=== PATIENT | male | born 1955 | race African-American/Black ===

== ENCOUNTER 2017-06-25 09:11 | Emergency (ER) | payer MEDICAID, OTHER ==
[~2017-06-25] VITALS: Ht 185.4 cm; Wt 83.9 kg
[2017-06-25] MEDS ORDERED: DILTIAZEM 24HR180 M1 ORAL (09:26)
[2017-06-25] MEDS ORDERED: LOSARTAN POTASS50 MG ORAL (09:26)
[2017-06-25 09:35] VITALS: BP 152/129
--- NOTE | 2017-06-25 09:44 | Emergency Room Report ---
History of Present Illness General Chief Complaint: Chest Pain Source: Patient Present Illness HPI 62-year-old male with pmhx of HTN, occasional smoking history p/w chest pain for one hour. Chest pain started while at rest. His friend took his blood pressure and noted it to be high systolic 180. Chest pain is localized to substernal area, no radiation to back or other areas, sharp in nature, gradual in onset, pain has gradually improved since coming to the emergency room. no SOB. Denies palpitations, diaphoresis, n/v. Denies fever, chills, cough, abd pain. Denies trauma. Patient states that he had a cardiac workup, including stress test and angiogram , that was performed more than 6-7 years ago, which were normal States that he smokes occasionally, never one pack of cigarettes per day. Denies other drug use Allergies: Coded Allergies: NO KNOWN DRUG ALLERGIES (Unverified Allergy, Unknown, 02/23/14) Patient History Past Medical History: see triage record Past Surgical History: none Pertinent Family History: none Reviewed Nursing Documentation: PMH: Agreed, PSxH: Agreed Nursing Documentation-PMH Past Medical History: No History, Except For Hx Hypertension: Yes Review of Systems All Other Systems: negative except mentioned in HPI Physical Exam Vital Signs Date Time Temp Pulse Resp B/P (MAP) Pulse Ox O2 Delivery O2 Flow Rate FiO2 06/25/17 09:22 98.4 85 16 182/120 96 Room Air 98.4 Sp02 EP Interpretation: reviewed, normal General Appearance: normal inspection, well appearing, no apparent distress, alert, GCS 15, non-toxic Head: normocephalic, atraumatic Eyes: bilateral eye normal inspection, bilateral eye PERRL, bilateral eye EOMI ENT: normal ENT inspection, normal pharynx, normal voice, moist mucus membranes Neck: normal inspection, full range of motion, supple Respiratory: normal inspection, lungs clear, normal breath sounds, no respiratory distress, no retraction, no wheezing, speaking full sentences, chest symmetrical Cardiovascular #1: normal inspection, regular rate, rhythm, no edema, normal capillary refill Cardiovascular #2: 2+ radial (R), 2+ radial (L) Gastrointestinal: normal inspection, non tender, soft, non-distended, no guarding Genitourinary: no CVA tenderness Musculoskeletal: normal inspection, back normal, normal range of motion, non- tender Neurologic: normal inspection, alert, oriented x3, responsive, motor strength/ tone normal, sensory intact, normal gait, speech normal Psychiatric: normal inspection, judgement/insight normal, memory normal Skin: normal inspection, normal color, no rash, warm/dry, well hydrated, normal turgor Medical Decision Making Diagnostic Impression: Primary Impression: ACS (acute coronary syndrome) ER Course 62-year-old male with pmhx of hypertension p/w CP DDX: ACS vs. CHF vs. pneumonia vs. gastritis/GERD vs. pneumothorax PE on differential however at this time there are other more likely diagnoses. Plan: IV access, obtain labs including troponin, EKG, CXR ASA, pain control with nitro / morphine Anticipate admission ER course: Patient was treated with ASA. Patient has remained on a monitor, HD stable, chest pain improved. Disposition: Patient requires admission for chest pain due to new TWI on EKG and some persistent CP Due to patient's history and comorbidities, patient has increased risk of acute cardiac event. Patient requires admission for further workup, serial troponin, and possible stress test Pt will be xferred due to insurance purposes -- [facility] hospitalist Dr Cornejo who has accepted pt to xfer to [facility] Please note that this Emergency Department Report was dictated using [employer] project site monitor technology software, occasionally this can lead to erroneous entry secondary to interpretation by the dictation equipment. EKG Diagnostic Results EP Interpretation: Yes Rate: normal Rhythm: NSR ST Segments: T-wave inversion lateral leads that are new since previous EKG 2013 ASA given to patient: Yes Rhythm Strip EP Interpretation: Yes Rate: 70 Rhythm: NSR, no PVCs, no ectopy Chest X-ray CXR: Ordered: Yes 1 view Indication: Chest pain EP interpretation: Yes Interpretation: No consolidation, no effusion, no PTX, no acute cardiopulmonary disease Impression: No acute disease Electronically signed by Ancelmo Styles MD Laboratory Tests Test 06/25/17 09:30 06/25/17 10:36 White Blood Count 7.3 K/UL (4.8-10.8) Red Blood Count 4.53 M/UL (4.70-6.10) L Hemoglobin 15.2 G/DL (14.2-18.0) Hematocrit 42.8 % (42.0-52.0) Mean Corpuscular Volume 94 FL (80-99) Mean Corpuscular Hemoglobin 33.5 PG (27.0-31.0) H Mean Corpuscular Hemoglobin Concent 35.4 G/DL (32.0-36.0) Red Cell Distribution Width 10.6 % (11.6-14.8) L Platelet Count 280 K/UL (150-450) Mean Platelet Volume 6.0 FL (6.5-10.1) L Neutrophils (%) (Auto) 71.1 % (45.0-75.0) Lymphocytes (%) (Auto) 17.1 % (20.0-45.0) L Monocytes (%) (Auto) 6.3 % (1.0-10.0) Eosinophils (%) (Auto) 4.3 % (0.0-3.0) H Basophils (%) (Auto) 1.2 % (0.0-2.0) Sodium Level 140 MMOL/L (136-145) Potassium Level 3.8 MMOL/L (3.5-5.1) Chloride Level 106 MMOL/L (98-107) Carbon Dioxide Level 30 MMOL/L (21-32) Anion Gap 4 mmol/L (5-15) L Blood Urea Nitrogen 13 mg/dL (7-18) Creatinine 1.5 MG/DL (0.55-1.30) H Estimate Glomerular Filtration Rate 57.7 mL/min (>60) Glucose Level 135 MG/DL (74-106) H Calcium Level 9.0 MG/DL (8.5-10.1) Total Bilirubin 0.3 MG/DL (0.2-1.0) Aspartate Amino Transferase (AST) 24 U/L (15-37) Alanine Aminotransferase (ALT) 50 U/L (12-78) Alkaline Phosphatase 48 U/L (46-116) Troponin I 0.005 ng/mL (0.000-0.056) Pro-B-Type Natriuretic Peptide 117 pg/mL (0-125) Total Protein 7.4 G/DL (6.4-8.2) Albumin 3.4 G/DL (3.4-5.0) Globulin 4.0 g/dL Albumin/Globulin Ratio 0.9 (1.0-2.7) L Urine Color Pending Urine Appearance Pending Urine pH Pending Urine Specific [place] Pending Urine Protein Pending Urine Glucose (UA) Pending Urine Ketones Pending Urine Occult Blood Pending Urine Nitrite Pending Urine Bilirubin Pending Urine Urobilinogen Pending Urine Leukocyte Esterase Pending Urine Opiates Screen Pending Urine Barbiturates Screen Pending Phencyclidine (PCP) Screen Pending Urine Amphetamines Screen Pending Urine Benzodiazepines Screen Pending Urine Cocaine Screen Pending Urine Marijuana (THC) Screen Pending Last Vital Signs Date Time Temp Pulse Resp B/P (MAP) Pulse Ox O2 Delivery O2 Flow Rate FiO2 06/25/17 09:35 97.4 82 18 152/129 99 Room Air 97.4 Disposition: XFER SHT-TRM HOSP Condition: Serious Referrals: [facility],REFERRING (PCP) Ancelmo Styles M.D. Jun 25, 2017 09:44
[2017-06-25] MEDS: Nitroglycerin Subl 0.4mg tab SL PRN ×2 (09:49→09:58)
[2017-06-25 09:53] LABS: BASOPHILS % (AUTO) 1.2 % (0.0-2.0); EOSINOPHILS % (AUTO) 4.3 % (0.0-3.0); HEMATOCRIT 42.8 % (42.0-52.0); HEMOGLOBIN 15.2 G/DL (14.2-18.0); LYMPHOCYTES % (AUTO) 17.1 % (20.0-45.0); MEAN CORPUSCULAR VOLUME 94 FL (80-99); MONOCYTES % (AUTO) 6.3 % (1.0-10.0); NEUTROPHILS % (AUTO) 71.1 % (45.0-75.0); PLATELET COUNT 280 K/UL (150-450); RED BLOOD COUNT 4.53 M/UL (4.70-6.10); RED CELL DISTRIBUTION WIDTH 10.6 % (11.6-14.8); WHITE BLOOD COUNT 7.3 K/UL (4.8-10.8)
[2017-06-25 09:59] LABS: ANION GAP 4 mmol/L (5-15); BLOOD UREA NITROGEN 13 mg/dL (7-18); CARBON DIOXIDE 30 MMOL/L (21-32); CHLORIDE 106 MMOL/L (98-107); CREATININE 1.5 MG/DL (0.55-1.30); POTASSIUM 3.8 MMOL/L (3.5-5.1); SODIUM 140 MMOL/L (136-145)
[2017-06-25 10:11] LABS: ALANINE AMINOTRANSFERASE 50 U/L (12-78); ALBUMIN 3.4 G/DL (3.4-5.0); ALBUMIN/GLOBULIN RATIO 0.9 (1.0-2.7); ALKALINE PHOSPHATASE 48 U/L (46-116); ASPARTATE AMINO TRANSFERASE 24 U/L (15-37); BILIRUBIN,TOTAL 0.3 MG/DL (0.2-1.0)
--- NOTE | 2017-06-25 10:18 | Diagnostic Imaging Report ---
Indication: Chest pain Comparison: 02/22/2014 A single view chest radiograph was obtained. Findings: Cardiomediastinal appearance is within normal limits for age. Aorta is ectatic. Pulmonary vascularity is appropriate. The diaphragmatic contour is smooth and costophrenic angles are sharp. No pleural effusions are identified. The bones are slightly osteopenic. Impression: No acute findings
[2017-06-25 10:44] LABS: APPEARANCE,URINE CLEAR; BILIRUBIN, URINE NEGATIVE (NEGATIVE); COLOR,URINE PALE YELLOW; GLUCOSE, URINE (UA) NEGATIVE (NEGATIVE); KETONES,URINE NEGATIVE (NEGATIVE); LEUKOCYTE ESTERASE ,URINE NEGATIVE (NEGATIVE); NITRITE,URINE NEGATIVE (NEGATIVE); PH,URINE 7 (4.5-8.0); PROTEIN,URINE NEGATIVE (NEGATIVE); UROBILINOGEN,URINE NORMAL MG/DL (0.0-1.0)
[2017-06-25 12:27] VITALS: BP 169/108
[2017-06-25 12:28] VITALS: BP 169/108
--- NOTE | 2017-06-28 16:20 | Cardiology Report ---
APPROVED REPORT EKG Measurement Heart [id number] Normal sinus rhythm with sinus arrhythmia Left axis deviation Abnormal ECG
== END 2017-06-25 12:29 | disposition short-term general hospital (02) ==
LOC: EMR 09:24
DX: I24.9 Acute ischemic heart disease, unspecified (principal); I10 Essential (primary) hypertension
CPT/HCPCS: 36415; 71045; 80053; 80307; 81003; 83880; 84484; 85025; 93005; 99284

== ENCOUNTER 2019-11-08 13:32 | Emergency (ER) | payer OTHER ==
[~2019-11-08] VITALS: Ht 182.9 cm; Wt 83.9 kg
[~2019-11-08 13:32] MED LIST: DILTIAZEM 24HR180 M1 ORAL; LOSARTAN POTASS50 MG ORAL
[2019-11-08] MEDS ORDERED: HYDROCHLOROTHIA25 MG ORAL (13:48)
[2019-11-08] MEDS ORDERED: METOPROLOL TART50 M1 ORAL (13:48)
[2019-11-08 13:53] VITALS: BP 148/93
--- NOTE | 2019-11-08 14:03 | Emergency Room Report ---
History of Present Illness General Chief Complaint: General Complaint Source: Patient Present Illness HPI History of present illness: 61-year-old -[place] male with past medical history of hypertension presents with left upper extremity paresthesia X 2 days. The patient's symptoms were abrupt onset, severity was moderate, duration since 2 days. Symptoms happened in the context of when he woke up 2 days ago he found his left upper extremity slightly weaker but the weakness gradually went away. The paresthesias remain.. The patient endorses associated symptoms of numbness/ tingling of the left arm, forearm, and hand, and denies any associated symptoms of headache, vision changes, slurred speech, facial droop, or difficulty walking Denies head trauma. States he has been compliant with his medications Past medical history: Hypertension, dyslipidemia Past surgical history: Ortho Smoking: Denies Alcohol use: Occasional Drug use: Occasional marijuana Review of systems: CONST: No fevers or chills, No night sweats PULMONARY: No productive cough, No shortness of breath CARDIAC: No chest pain, No palpitations GI: No vomiting, No diarrhea , No melena_or_BRBPR : No dysuria, No hematuria, No discharge NEURO: No new_focal_weakness_or_numbness, No confusion, No vision changes 14 point Review of Systems is otherwise negative except per HPI Physical Exam: GENERAL: Awake_alert_ nontoxic, no acute distress Spo2 96 % on room air, normal EYES: Extraocular muscles are intact. Conjunctivae clear. Lids without swelling ENT: External nose and ear normal_in_appearance. Oropharynx clear. Head_ atraumatic, Moist_oral_mucosa NECK: No JVD. No meningismus. No thyromegaly. Supple. Trachea midline RESP: Normal respiratory effort. Symmetric rise. No stridor. Clear_to_ auscultation_No_rales_No_wheezes CARDIAC: Regular rate and regular rhythm on_auscultation No_significant pedal edema. ABDOMEN: Soft. Nondistended. Nontender_No_rebound_or_guarding. MSK: Normal muscle tone, without rigidity. Extremities without asymmetric deformity or swelling. SKIN: Warm and dry. No visible cyanosis or pallor NEUROLOGIC: Alert, oriented x3. Motor_and_sensation_grossly_intact. No truncal ataxia. Gait_normal Sensation to left upper extremity. Bilateral upper and lower extremity strength plus 5 out of 5, symmetric bilaterally negative Romberg sign. Abnormal left upper extremity finger to nose. Normal RUE finger to nose. No pronator drift. Psych: Normal mood and affect, normal judgment and insight - COORDINATION OF CARE Case was discussed with: Patient Any labs and imaging that were ordered were interpreted as part of the medical decision making: Medical Decision Making/Plan: Differential diagnosis includes TIA, ischemic stroke, hemorrhagic stroke, salvador s paralysis, hypoglycemia, brain mass, metabolic encephalopathy, among others. The patients presentation appears most consistent with a diagnosis of TIA given transient neurologic symptoms that have completely resolved CT shows old R lacunar infarct. This is likely the cause for the patient's symptoms. No ICH. Chest x-ray shows no acute abnormalities. Left shoulder repair labs show KELLEN. Troponin is negative x1. The patient is not a tPa candidate because their NIH stroke scale is zero. They have a normal neurologic exam, all symptoms resolved and back to baseline The patient will be admitted to the hospital to a telemetry bed for further workup and treatment. Aspirin was given and care transitioned to the admitting physician. 1600: I spoke with Dr. Addison, and reviewed the patients presentation, workup, results, and treatment. They will admit the patient for further care and evaluation, and assume care of the patient at this time. The patient has been stabilized to the best of this emergency department's capabilities. Given the patient's medical needs, appropriate facilities for transfer were discussed and the decision has been made to transfer this patient to [facility] due to capitation. The receiving facility has the capacity and capabilities to provide care for the patient. I spoke with Dr Addison who accepted the patient in transfer. The patient has been informed and updated of their current clinical status. The patient has given verbal consent for the transfer. The risks and benefits were explained and the patient verbalizes their understanding. The patient will be transported by S Allergies: Coded Allergies: NO KNOWN DRUG ALLERGIES (Unverified Allergy, Unknown, 02/23/14) COVID-19 Screening Contact w/high risk pt: No Experienced COVID-19 symptoms?: No COVID-19 Testing performed CAR RENTAL MANAGER: No Nursing Documentation-PMH Past Medical History: No History, Except For Hx Hypertension: Yes Physical Exam Vital Signs Date Time Temp Pulse Resp B/P (MAP) Pulse Ox O2 Delivery O2 Flow Rate FiO2 11/08/19 13:43 98.4 63 14 155/99 (117) 96 Room Air Sp02 EP Interpretation: reviewed, normal Procedures Critical Care Time Critical Care Time Critical Care Statement Organ systems at risk include: Neurologic, cardiac, circulatory Critical care performed for 45 minutes. Time is exclusive of separately billable procedures. Time includes: direct patient care, continuous monitoring and multiple patient reassessment, coordination of patient care, review of patient's medical records , medical consultation, family consultation regarding treatment decisions and documentation of patient care. Medical Decision Making Diagnostic Impression: Primary Impression: TIA (transient ischemic attack) Additional Impressions: Paresthesia of left upper extremity Hypertension Hyperlipidemia Smoker Marijuana use Right-sided lacunar infarction KELLEN (acute kidney injury) Cocaine abuse Marijuana abuse EKG Diagnostic Results EKG Time: 14:15 Other Impression 12-lead EKG (interpreted by me) Time: 1415 Indication: [Rhythm analysis] Tracing visualized and Interpreted by me. Rhythm: Sinus bradycardia Rate: 55 bpm QTc: 401 Morphology: No_significant_ST_elevations_or_depressions, No STEMI Impression: Sinus bradycardia, Twi V4-V6; nL axis ASA given to the pt in ED: Yes Rhythm Strip Diag. Results Rhythm Strip Time: 14:07 EP Interpretation: yes Rate: 63 Rhythm: NSR, no PVC's, no ectopy Other Impression Normal Chest X-Ray Diagnostic Results Chest X-Ray Diagnostic Results : PRAISH Scribe Text Chest X-ray: Views: 1 view(s) Indication: TIA Findings: Normal heart size. Mediastinum normal. No infiltrate. Impression: No Acute disease The X-ray(s) were independently viewed and interpreted contemporaneously - Electronically signed by Mónica aguilar DO CT/MRI/US Diagnostic Results CT/MRI/US Diagnostic Results : Impression Procedure: CT Head no Contrast Indication: L Sided weakness Comparison: None. Findings: Old lacunar infarct is seen in the right frontal deep white matter. There is mild periventricular deep white matter low-attenuation, consistent with chronic microvascular ischemic change. The ventricles and extra-axial CSF spaces are normal for age. No acute intracranial hemorrhage or edema. No mass effect nor midline shift. The mastoids are clear. The visualized orbits and sinuses are unremarkable. The calvarium is intact. Impression: Age-related changes, as described Old right frontal lacunar infarct Negative for acute intracranial bleed or mass effect Reevaluation Time: 14:08 Last Vital Signs Date Time Temp Pulse Resp B/P (MAP) Pulse Ox O2 Delivery O2 Flow Rate FiO2 11/08/19 13:43 98.4 63 14 155/99 (117) 96 Room Air Status: improved Disposition: ADMITTED INPATIENT - [facility]. Accepting Dr Addison Admmary Decision Time: 14:08 Condition: Stable Mónica Reed D.O. Nov 08, 2019 14:02
--- NOTE | 2019-11-08 14:25 | Diagnostic Imaging Report ---
Indications: Left-sided weakness and numbness Technique: Spiral acquisitions obtained through the brain. Angled axial and coronal 5 x 5 mm slices were reconstructed. Total dose length product 1072 mGycm. CTDI vol(s) 53 mGy. Dose reduction achieved using automated exposure control Comparison: None. Findings: Old lacunar infarct is seen in the right frontal deep white matter. There is mild periventricular deep white matter low-attenuation, consistent with chronic microvascular ischemic change. The ventricles and extra-axial CSF spaces are normal for age. No acute intracranial hemorrhage or edema. No mass effect nor midline shift. The mastoids are clear. The visualized orbits and sinuses are unremarkable. The calvarium is intact. Impression: Age-related changes, as described Old right frontal lacunar infarct Negative for acute intracranial bleed or mass effect The CT scanner at [facility] is accredited by the [employer] and the scans are performed using protocols designed to limit radiation exposure to as low as reasonably achievable to attain images of sufficient resolution adequate for diagnostic evaluation.
[2019-11-08 14:37] LABS: EOSINOPHILS % (AUTO) 0.9 % (0.0-3.0); HEMATOCRIT 47.6 % (42.0-52.0); HEMOGLOBIN 16.3 G/DL (14.2-18.0); LYMPHOCYTES % (AUTO) 15.5 % (20.0-45.0); MEAN CORPUSCULAR VOLUME 94 FL (80-99); MONOCYTES % (AUTO) 7.6 % (1.0-10.0); PLATELET COUNT 332 K/UL (150-450); RED BLOOD COUNT 5.06 M/UL (4.70-6.10); RED CELL DISTRIBUTION WIDTH 10.9 % (11.6-14.8); WHITE BLOOD COUNT 14.9 K/UL (4.8-10.8)
[2019-11-08 14:40] LABS: ANION GAP 5 mmol/L (5-15); BLOOD UREA NITROGEN 20 mg/dL (7-18); CARBON DIOXIDE 34 MMOL/L (21-32); CHLORIDE 99 MMOL/L (98-107); CREATININE 1.5 MG/DL (0.55-1.30); POTASSIUM 3.9 MMOL/L (3.5-5.1); SODIUM 138 MMOL/L (136-145)
[2019-11-08 14:41] LABS: CALCIUM 10.1 MG/DL (8.5-10.1)
[2019-11-08 14:49] LABS: ALANINE AMINOTRANSFERASE 70 U/L (12-78); ALBUMIN 4.2 G/DL (3.4-5.0); ALKALINE PHOSPHATASE 66 U/L (46-116); ASPARTATE AMINO TRANSFERASE 21 U/L (15-37); BILIRUBIN,TOTAL 0.2 MG/DL (0.2-1.0); CHOLESTEROL 143 MG/DL (< 200); HDL CHOLESTEROL 72 MG/DL (40-60); TRIGLYCERIDES 79 MG/DL (30-150)
--- NOTE | 2019-11-08 15:13 | Diagnostic Imaging Report ---
Indication: Shortness of breath Technique: One view of the chest Comparison: 06/25/2017 Findings: Lungs and pleural spaces are clear. Heart size is normal. No significant change Impression: No acute process
[2019-11-08] MEDS ORDERED: Enalaprilat 2.5mg/2ml Inj IV ONE (16:15)
[2019-11-08 16:37] VITALS: BP 157/101
[2019-11-08 17:15] VITALS: BP 152/85
== END 2019-11-08 17:15 | disposition short-term general hospital (02) ==
LOC: EMR 14:02
DX: G45.9 Transient cerebral ischemic attack, unspecified (principal); R20.0 Anesthesia of skin; E78.5 Hyperlipidemia, unspecified; I10 Essential (primary) hypertension; F17.200 Nicotine dependence, unspecified, uncomplicated; F12.90 Cannabis use, unspecified, uncomplicated; N17.9 Acute kidney failure, unspecified; F14.10 Cocaine abuse, uncomplicated; F12.10 Cannabis abuse, uncomplicated; R00.1 Bradycardia, unspecified
CPT/HCPCS: 36415; 70450; 71045; 80053; 80061; 80307; 82310; 83690; 83735; 83880; 84484; 85025; 93005; 96374; Z7502; 99291